=== PATIENT | female | born 1950 | race Caucasian/White ===

== ENCOUNTER 2017-11-06 21:42 | Emergency (ER) | payer MEDICARE, OTHER ==
--- NOTE | 2017-11-06 22:10 | EDM.PDOC ---
ED HPI GENERAL MEDICAL PROBLEM - General Chief Complaint: Lower Extremity Injury/Pain Stated Complaint: INJURED LEFT ANKLE Time Seen by Provider: 11/06/17 21:55 Source of Information: Reports: Patient History Limitations: Reports: No Limitations - History of Present Illness INITIAL COMMENTS - FREE TEXT/NARRATIVE: 67-year-old female presents via private vehicle for evaluation and treatment of injury to the left ankle. Patient reports injury occurred about an hour prior to arrival in the ER. She states that she was getting out of her van was on type stepstool. She states that she had something in her hands. She reports that she her left ankle rolled. She is unable to bear weight. Complaining of pain and swelling to the left ankle. Some numbness benign denies any tingling. She reports at this point pain is tolerable she has not taken anything for pain and declined any pain medicine here in the ED. No head trauma. Left Ankle Pain Score (Numeric/FACES): 4 - Related Data Allergies Allergy/AdvReac Type Severity Reaction Status Date / Time No Known Allergies Allergy Verified 11/06/17 21:54 Home Meds: Home Meds . [No Known Home Meds] 11/06/17 [History] Past Medical History - Past Surgical History GI Surgical History: Reports: Appendectomy Social & Family History - Tobacco Use Smoking Status *Q: Never Smoker - Caffeine Use Caffeine Use: Reports: Coffee, Soda - Recreational Drug Use Recreational Drug Use: No Review of Systems - Review of Systems Review Of Systems: See Below Musculoskeletal: Reports: Joint Pain (left ankle pain), Joint Swelling (left ankle) Skin: Reports: Bruising (left ankle) ED EXAM, GENERAL - Physical Exam Exam: See Below Exam Limited By: No Limitations General Appearance: Alert, WD/WN, No Apparent Distress Respiratory/Chest: No Respiratory Distress Cardiovascular: Normal Peripheral Pulses, Regular Rate, Rhythm Peripheral Pulses: 2+: Posterior Tibial (R) (left obscured by swelling), Dorsalis Pedis (L), Dorsalis Pedis (R) Extremities: Normal Capillary Refill, Limited Range of Motion (deferred due to pain and swelling), Other (deformity to the left ankle) Neurological: Alert, Oriented, Normal Cognition Psychiatric: Normal Affect, Normal Mood Skin Exam: Warm, Dry, Normal Color, Ecchymosis (left ankle) ED TRAUMA EXTREMITY PROCEDURES - Joint Reduction Site: Other (left ankle) Sedation: Conscious Sedation (fentanyl and versed) Pre-Procedure NV Status: Normal Post-Procedure NV Status: Normal Technique: Traction/Counter Traction Number of Attempts: 1 Post-Reduction Imaging: Acceptably Reduced, Fracture Seen Joint Reduction Complications: No - Splinting Left Lower Extremity Splint Site: left ankle Pre-Procedure NV Status: Normal Post-Procedure NV Status: Normal Splint Material: Other (orthoglass) Splint Design: Stirrup, Posterior Applied & Form Fitted By: Provider Provider Post-Splint Application NV Check: NV Status Normal, Good Position Complications: No Course - Vital Signs Last Recorded V/S: Last Vital Signs Temp 98.7 F 11/06/17 21:52 Pulse 85 11/06/17 21:52 Resp 18 11/06/17 21:52 BP 154/67 H 11/06/17 21:52 Pulse Ox 96 11/06/17 21:52 - Orders/Labs/Meds Orders: Active Orders 24 hr Category Date Time Status Peripheral IV Care [RC] . DIRECTED Care 11/06/17 22:43 Active Ankle 2V Lt [CR] Stat Exams 11/06/17 23:30 Taken Ankle Min 3V Lt [CR] Stat Exams 11/06/17 22:04 Taken Sodium Chloride 0.9% [Saline Flush] Med 11/06/17 22:43 Active 10 ml FLUSH ASDIRECTED PRN Peripheral IV Insertion Adult [OM.PC] Routine Oth 11/06/17 22:43 Ordered Medication Orders Sodium Chloride (Saline Flush) 10 ml FLUSH ASDIRECTED PRN PRN Reason: Keep Vein Open Last Admin: 11/06/17 23:20 Dose: 10 ml Meds: Medications Generic Name Dose Route Start Last Admin Trade Name Freq PRN Reason Stop Dose Admin Sodium Chloride 10 ml 11/06/17 22:43 11/06/17 23:20 Saline Flush FLUSH 10 ml ASDIRECTED PRN Administration Keep Vein Open Discontinued Medications Generic Name Dose Route Start Last Admin Trade Name Freq PRN Reason Stop Dose Admin Fentanyl 100 mcg 11/06/17 22:43 11/06/17 23:08 Sublimaze IVPUSH 11/06/17 22:44 100 mcg ONETIME ONE Administration Fentanyl Confirm 11/06/17 23:13 11/06/17 23:20 Sublimaze Administered 11/06/17 23:14 Not Given Dose 100 mcg .ROUTE .STK-MED ONE Midazolam HCl 5 mg 11/06/17 22:43 11/06/17 23:20 Versed 1 Mg/Ml IVPUSH 11/06/17 22:44 Not Given ONETIME ONE Midazolam HCl Confirm 11/06/17 22:53 11/06/17 23:09 Versed 5 Mg/Ml Administered 11/06/17 22:54 25 mg Dose Administration 25 mg .ROUTE .STK-MED ONE - Radiology Interpretation Free Text/Narrative:: X-ray of the left ankle shows a trimalleolar fracture with anterior displacement. Post reduction films show improvement in the displacement - Re-Assessments/Exams Free Text/Narrative Re-Assessment/Exam: 11/06/17 11:[address] Al[address]con at [facility]. Plan will be we will reduce her here in the ED tonight and center. He will see her in the ER tomorrow with plan for surgery tomorrow. Patient was given 100 mg of fentanyl and 4 mg of Versed. This provided conscious sedation. Dr. Culver preformed reduction. Post reduction x-rays were acceptable. She was splinted. 11/07/17 00:22 Patient is resting comfortably. Plan will be she will stay here in the ER and tomorrow morning she may not be safe to get in and out of her van. Will give prn percocet here in ED. Departure - Departure Time of Disposition: 00:23 Disposition: Home, Self-Care 01 Condition: Fair Clinical Impression: Trimalleolar fracture of ankle, closed Qualifiers: Encounter type: initial encounter Laterality: left Qualified Code(s): S82.852A - Displaced trimalleolar fracture of left lower leg, initial encounter for closed fracture - Discharge Information Referrals: PCP,Not In Area [Primary Care Provider] - Randy Alarcon MD [Ordering Only Provider] - Forms: ED Department Discharge Additional Instructions: Nothing to eat or drink after midnight. You will have surgery once you get to [place]. In the morning to [facility]. Go to the ER. Dr. Alarcon, orthopedic provider will see you in the ER and plan to take you to surgery to have your ankle fixed. [facility] is located at [address] [place] [address]. Their number is [phone] if you have any questions. You are to be nonweightbearing. Must use the crutches when up and moving around. Elevate the leg as much as you are able to. ice ankle even over the splint. you were given medication in the ED that can affect your ability to drive or operate machinery. No driving or operate machinery within 12 hours of taking prescription narcotic pain medication. Percocet 1-2 tabs every 4-6 hours as needed pain. percocet is habit-forming, take as few of these as needed to control your pain. Do not drive or operate machinery within 12 hours of taking narcotics. Please return to the if your symptoms change or worsen. - My Orders Last 24 Hours: My Active Orders 11/06/17 22:04 Ankle Min 3V Lt [CR] Stat 11/06/17 22:43 Peripheral IV Care [RC] . DIRECTED Sodium Chloride 0.9% [Saline Flush] 10 ml FLUSH ASDIRECTED PRN Peripheral IV Insertion Adult [OM.PC] Routine 11/06/17 23:30 Ankle 2V Lt [CR] Stat - Assessment/Plan Last 24 Hours: My Active Orders 11/06/17 22:04 Ankle Min 3V Lt [CR] Stat 11/06/17 22:43 Peripheral IV Care [RC] . DIRECTED Sodium Chloride 0.9% [Saline Flush] 10 ml FLUSH ASDIRECTED PRN Peripheral IV Insertion Adult [OM.PC] Routine 11/06/17 23:30 Ankle 2V Lt [CR] Stat
[2017-11-06] MEDS ORDERED: Sodium Chloride 0.9% 10 ML Syringe FLUSH PRN (22:43)
[2017-11-06] MEDS ORDERED: Midazolam 1 MG/ML 5 ML SDV IVPUSH ONE (22:43)
[2017-11-06] MEDS ORDERED: fentaNYL 100 MCG/2 ML SDV IVPUSH ONE (22:43)
[2017-11-06] MEDS ORDERED: Midazolam 5 MG/ML 5 ML MDV ONE (22:53)
[2017-11-06] MEDS ORDERED: fentaNYL 100 MCG/2 ML SDV ONE (23:13)
--- NOTE | 2017-11-09 11:14 | CR ---
Left ankle: Two views of the left ankle were obtained. Comparison: Previous ankle study performed earlier on the same day (10:08 PM). Trimalleolar fracture shows reduction. Previous dislocation has been reduced. Fiberglass splint or cast is in place. Soft tissue swelling remains. Impression: 1. Reduction of previous dislocation. Fracture fragments also appear better in alignment. 2. Fiberglas cast or splint. Diagnostic code #2
--- NOTE | 2017-11-09 11:14 | CR ---
Left ankle: Four views of the left ankle were obtained. Comparison: No previous study. Displaced fractures are noted within the medial malleolus, distal fibula and posterior malleolus. Tibia is shifted anterior to the talus as well as medially. Soft tissue swelling is noted. No additional abnormality is seen. Impression: 1. Displaced trimalleolar fracture with soft tissue swelling. Diagnostic code #3
== END 2017-11-07 06:25 | disposition home or self-care (01) ==
LOC: JD.ED 21:42
DX: S82.852A Displaced trimalleolar fracture of left lower leg, initial encounter for closed fracture (principal); X50.1XXA Overexertion from prolonged static or awkward postures, initial encounter
CPT/HCPCS: 27818; 73600; 73610; 96374; 96375; 99152; 99284; J2250; J3010; J7050; 27752; 27840; 29515